=== PATIENT | male | born 1980 | race Caucasian/White ===

== ENCOUNTER 2024-09-22 16:02 | Emergency (ER) | payer OTHER, SELFPAY ==
[2024-09-22 16:04] VITALS: BP 123/1; PULSE 74; RESP 16; TEMP 36.4; O2SAT 99; BMI 26.4
--- NOTE | 2024-09-22 16:18 | EDS_ITS ---
HPI History of Present Illness Chief Complaint: Laceration Informant: patient and spouse/S.O. Narrative Narrative: 44-year-old male [id number] injured his left hand just prior to arrival. He was trying to lift a heavy machine out of the back of a truck, and in doing so a lever came down and pinched his hand like scissors, he sustained some lacerations and some bleeding and is having pain and trouble moving the ring finger. No other injuries. Tetanus Immunization: 5-10 years [facility] Medical History (Updated 09/22/24 @ 17:[address] Nathanael Woodall MD) Hiatal hernia Anxiety Depression Home Medications ?Medication ?Instructions ?Recorded ?Last Taken ?Type cefadroxil 500 mg capsule 500 mg PO BID #10 caps 09/22/24 Unknown Rx Allergy/AdvReac Type Severity Reaction Status Date / Time No Known Allergies Allergy Verified 09/22/24 16:33 ROS ROS ED Constitutional Constitutional ED: Denies chills or fever(s) Musculoskeletal Musculoskeletal: Reports extremity pain; Denies neck pain Integumentary Reports Abrasions and wounds; Denies rash Neurologic Neurologic: Denies paresthesias or weakness EXAM Physical Exam Const Vital Signs: 09/22/24 16:04 Temperature 97.5 F L Temperature Source Temporal Pulse Rate 74 Respiratory Rate 16 Blood Pressure 123/1 H Blood Pressure Mean 41 Pulse Ox 99 Oxygen Delivery Method Room Air Positive well nourished and well developed General Appearance ED: well developed and NAD Neck full ROM and supple Back/Spine normal ROM and normal to inspection Extremity Extremity Narrative: There are 2 different abrasions, one about the dorsum of the distal left ring finger, the other dorsal middle phalanx of the little finger, neither of which is full-thickness requiring repair. There is swelling and tenderness about the proximal phalanx along with a mild deformity. The patient cannot extend, the PIPJ and the DIPJ are in gentle flexion. He has significant pain with attempting to extend. The FDP is intact, he has difficulty flexing the FDS. I am not able to verify that it is intact. Extensor, FDS, FDP of all other fingers are intact. There is a laceration 1.5 cm that is at the dorsum of the ring finger proximal phalanx. It is clean-appearing. No other repairable lacerations. Neuro oriented x3, no focal motor deficits and no sensory deficits noted Sensorium / Orientation: alert Psych mental status grossly normal and thought process normal Skin Skin Narrative: L hand, see above Rashes: no rashes MDM MDM MDM Narrative Medical decision making narrative: I am suspicious for an extensor tendon disruption here and possibly a fracture of the ring finger. Three-view x-ray series of the left hand was obtained, on my interpretation there is an angulated nondisplaced fracture of the proximal phalanx of the fourth digit. He was repaired and splinted see the procedure note. I also straightened/manipulated the angulation, resolving the deformity. His tetanus was updated, he was placed on prophylactic antibiotics for 5 days first dose given here. He will follow-up with plastics/hand, with whom I spoke. Management Discussion w/another healthcare provider: [employer] ([employer]) Procedures Lacerations Dorsal left fourth finger proximal phalanx: Length: 1.5 cm Depth: Sub Q Shape: Linear Prep: Sterile Conditions and Chlorhexadine Laceration repair: Digital block (Using dorsal approach, isopropanol prep, just proximal to the left fourth MCPJ, 6 cc plain 1% lidocaine, good anesthesia tolerated well no complications), Irrigated and - (Not deep enough to explore or see tendon) Irrigated (ml): 100 Number of Sutures/[place]: 3 Suture Information: Ethilon, Simple and 5-0 Upper Extremity Splints Upper Extremity Splint: Alumifoam (Volar finger) Splint Fabrication: Fabricated Location: Left (Ring finger. Neurovascular intact distally afterwards.) Other Procedures Procedure(s): Close reduction angulated fracture left fourth proximal phalanx: Gently distracted and manually manipulated, to a mild degree, making deformity straighter and then splinted see above. Neurovascular intact distally after manipulation. Discharge Plan Triage Chief Complaint: Laceration ED Provider: Nathanael Woodall Dx/Rx/DC Orders Clinical Impression: Nondisplaced fracture of proximal phalanx of left ring finger, initial encounter for open fracture, Laceration of left ring finger, Immunization, tetanus-diphtheria Instructions: ED Fracture, Finger, Open Prescriptions: New cefadroxil 500 mg capsule 500 mg PO BID Qty: 10 0RF Primary Care Provider: Kylee Olvera Referrals: Spenser Charlton MD [Med Staff - Active Staff] - 09/25/24 (call for time) Print Language: Italian Disposition Disposition: Home, Self Care Discharge Date/Time: 09/22/24 17:44
--- NOTE | 2024-09-22 16:25 | RAD_ITS ---
INDICATION: injury EXAMINATION/TECHNIQUE: X-RAY - LEFT XR Hand Min 3 Views 3 VIEWS COMPARISON: No relevant prior comparison study available FINDINGS: SOFT TISSUES: No soft tissue swelling or gas. No radiopaque foreign body. BONES/JOINTS: There is a fracture within the proximal diaphysis of the fourth proximal phalanx. There is widening of the scapholunate interval. Preservation of the joint space.. No sclerotic or destructive changes observed. RAD/Hand Min 3 Views IMPRESSION: Fourth proximal phalanx fracture. Widening of the scapholunate interval may be secondary to underlying ligamentous injury. Electronically Signed: Elo Warner MD at 16:38 EST ,
[2024-09-22] MEDS: Diphth,Pertuss(Acell),Tet Vac 0.5 ML Vial IM (16:30)
[2024-09-22] MEDS: Lidocaine 1% (20 ml mdv) 20 ML Vial INFILT (16:30)
[2024-09-22 17:36] VITALS: BP 120/70; PULSE 67; RESP 16; TEMP 37.1; O2SAT 99
[2024-09-22] MEDS: Cephalexin 250 MG Capsule 500 MG PO (17:42)
== END 2024-09-22 17:44 | disposition home or self-care (01) ==
PROVIDERS: Emergency Provider Emergency Medicine; PCP Physician Assistant; Visit Provider Emergency Medicine
DX: S62.645B Nondisplaced fracture of proximal phalanx of left ring finger, initial encounter for open fracture (principal); Z23 Encounter for immunization; X58.XXXA Exposure to other specified factors, initial encounter
CPT/HCPCS: 12001; 73130; 90471; 90715; 99283

== ENCOUNTER 2024-09-26 11:04 | Day surgery (SDC) | payer SELFPAY ==
[2024-09-26] VITALS (12 sets, daily range): BP systolic 103–132; BP diastolic 68–96; PULSE 62; RESP 16; TEMP 36.4; O2SAT 96–100; BMI 27.6
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
[2024-09-26] MEDS: Cefazolin 2 GM in Syringe IV (13:52)
--- NOTE | 2024-09-26 14:00 | RAD_ITS ---
INDICATION: FX EXAMINATION/TECHNIQUE: X-RAY - LEFT HAND XR Fingers Min 2 Views 8 fluoroscopic images. Total fluoroscopic time 3 minutes 16 seconds. Dose area product 15.6861 cGycm2. COMPARISON: Prior study dated: 09/25/2024 FINDINGS: Redemonstration of the fracture at the proximal aspect of the third digit proximal phalanx. Slight offset initially. There is reduction with placement of screw fixation across the fracture. Near-anatomic alignment. RAD/Finger(s) Min 2 Views IMPRESSION: Internal fixation of the third digit proximal phalanx fracture with near-anatomic alignment. Please refer to operative report for further information. Electronically Signed: Raudel Pérez MD at 22:56 EST ,
[2024-09-26] MEDS: Lidocaine 1% (20 ml mdv) 20 ML Vial (14:10)
[2024-09-26] MEDS: Bupivacaine 0.25% 30 ML Vial (14:10)
--- NOTE | 2024-09-26 15:19 | OP.PCM_ITS ---
Operative Report (Standard) Operative Information Date of Procedure: 09/26/24 Pre-Operative Diagnosis: 1) Left ring finger proximal phalanx (P1) fracture 2) Crush injury to dorsal of left ring finger with concern for extensor tendon injury Post-Operative Diagnosis: Same Surgery/Procedure Performed: 1) Open reduction, internal fixation of the left ring finger proximal phalanx fracture (CPT: 26916) 2) Exploration of upper extremity penetrating trauma, left dorsal ring finger (CPT: 96401) 3) Simple closure of dorsal left ring finger wound, 2.5 cm (CPT: 30870) fruit canner: Yes Bicycle Messenger: Peggy Minaya Tasks completed by assistant professor of physics: Retracting Type of Anesthesia: Local (18 cc of 0.25% marcaine and 1% lidocaine (a 50/50 mixture) ) RN Documented Start/Stop Times: Operation Date: 09/26/24 13:45 Case Time Into Pre-Op 09/26/24 11:22 Into Room 09/26/24 13:52 Procedure Start 09/26/24 14:12 Procedure End 09/26/24 14:57 Out of Room 09/26/24 14:59 Into Phase II Recovery 09/26/24 15:00 Procedure Start Time: 14:12 Procedure Stop Time: 14:57 Select all DRAINS/GRAFTS/IMPLANTS that apply: Implanted device (intramedullary screw, left ring finger P1) Implanted device details: Exsomed InFrame Implant, 2 mm x 36 mm , REF [id number], Lot [id number], Exp 13 April 2027 Estimated Blood Loss: Minimal Specimen collected: No Description of surgery: Indications: Yuan Davison is a delightful 44-year-old male who sustained a crush injury to his left ring finger resulting in an open fracture on 22 Sep 2024. He was washed out and splinted by the emergency department and they had him follow-up in my clinic. I talked to him about the risks, benefits and alternatives to surgery. There was concern from the ED physician for an extensor tendon injury, as her reported I am suspicious for an extensor tendon disruption here following exploration/wash out of the wound. Given that he had some extensor lag in clinic, I talked to Mr. Davison about exploration of the dorsal ring finger laceration to check for the laceration, and he agreed. Procedure details: Patient was correctly identified preoperative holding and marked, and taken back to the operating room where he was administered a local block. He was prepped and draped in sterile fashion and all proper timeouts were performed per protocol. I began the procedure by taking an x-ray of the fracture. I was able to reduce the fracture with gentle manipulation. I then took a guidewire for an Exsomed intramedullary screw and drilled from the proximal radial side of P1 to the distal ulnar side of P1 across the fracture line stabilizing the fracture. Mini C arm x-rays confirmed proper placement and reduction (on PA and lateral). I then checked the digital cascade and there was no angulation or rotation of the ring finger or scissoring. Therefore we proceeded and a cut down with 15 blade scalpel was made down to the base of P1 (this was the open part of the procedure). An InFrame implant (Exsomed) 2 mm x 36 mm screw was then placed through the guidewire into the proximal phalanx across the fracture line bridging the gap and filling the medullary cavity well. I was happy with the x- ray on PA and lateral. I stressed the fracture line with radial and ulnar stre ss and the construct appeared to be rigid and stable. I considered placing a second screw across the butterfly fragment at the base of P1, but given the degree of comminution and the etiology of the wound (crush injury), I decided against this derotational screw, as it appeared to be in acceptable position with enough stability. The cascade was checked one more time and was acceptable. With the guidewire removed, I then irrigated the small wound on the dorsum of the hand and closed with an interrupted horizontal mattress 4-0 nylon suture. Attention was then turned to the transverse laceration over the proximal phalanx of the left dorsal ring finger where there was concern for tendon injury. I open the suture line up with a 15 blade scalpel and made further exploratory incisions proximally and distally (creating a Z for better exposure) with a 15 blade scalpel. Careful dissection was carried out, ligating dorsal veins with bipolar electrocautery for hemostasis. I was able to identify the extensor digitorum communis tendon (EDC) and there was no obvious laceration to the tendon (some slight fraying from the crush injury which may have been mistaken for a full tendon injury). The wound was therefore irrigated and closed with horizontal mattress 4-0 nylon suture. The total simple closure was 2.5 cm. The patient tolerated the procedure well and was placed in an ulnar gutter splint with plaster. Postoperative plan: Continue antibiotics for 1 week. Follow-up in 1 week for x-rays. Continue immobilization with an ulnar gutter splint. We will likely immobilize for 3-4 weeks given crush injury/degree of comminution on the ulnar side. Surgical Findings: Stable fracture following placement of intramedullary screw with persistent ulnar-sided comminution near the base of P1. Complications Complications: No Admit VTE Documentation VTE Mechan Device Prophylaxis: SCD's
== END 2024-09-26 16:35 | disposition home or self-care (01) ==
LOC: SDC 11:06 → AC 11:14
PROVIDERS: PCP Physician Assistant; Referring Provider Surgery Plastic and Reconstructive Surgery; Visit Provider Surgery Plastic and Reconstructive Surgery
PROC: (CPT 26735; principal; 2024-09-26 13:30)
DX: S62.645B Nondisplaced fracture of proximal phalanx of left ring finger, initial encounter for open fracture (principal); S67.195A Crushing injury of left ring finger, initial encounter; X58.XXXA Exposure to other specified factors, initial encounter
CPT/HCPCS: 26735; 20103; 01830; 73140; 76000; C1713; A4216

== ENCOUNTER 2025-01-01 14:30 | Outpatient (RCR) | payer SELFPAY ==
--- NOTE | 2024-10-16 13:42 | HP.OTEVAL ---
Patient's Visit Information Visit Information Visit Information: CATINA EVANGELISTA is a 44 year old M, referred to Occupational Therapy by Dr. Spenser Charlton MD, with a diagnosis of left RF phalanx fx.. Date of Evaluation: 10/16/24 Occupational Therapist: Debbie Clark, OTR/L, CHT Subjective Subjective: This 44 year old male was seen for OT eval with dx of left RF phalanx. pt states on 2023 pt suffered a left hand crush injury. Pt states they went to [facility] and ended up with a Open reduction, internal fixation of the left ring finger proximal phalanx fracture. DOS was on 09/26/24. Pt arrives 2 weeks and 6 days s/p in need of protective custom orthosis. pt is right handed very active working with hand with cast on to split fire wood and perform other home mtg. tasks. wants hand protected as she knows her will do to much with his hand until he is cleared by Dr. Charlton ROM MP: left RF 0/65 PIP: left RF -20/35 DIP: left RF -10/20 ROM Comments: pt demo with limited AROM of left RF as pt just had his cast off this AM. Strength Strength Comments: will test later date Quick DASH-Disab of Arm,Shoulder& Hand Quick DASH Score: 51.6650 Goals Goal:ROM equal to unaffected hand: Yes Goal:Communications Professional/Pinch strength at least 75% of unaffected hand: Yes Comment: will initiate at later date about 6-8 weeks s/p Goal:No pain with affected hand use: Yes Goal:Full use of affected hand in daily activities including work: Yes Other Goal: orthosis use: pt will demo understanding of orthosis use with all activity and sleeping in orthosis- off for ex. for light ROM. Rehabilitation General Assessment: pt arrives 2 weeks and 6 days s/p from Open reduction, internal fixation of the left ring finger proximal phalanx fracture. pt demo need for skilled OT services 1-2x week for 8-12 weeks. Today pt in need of custom orthosis to provide support and protection to newly healing structures and ed. on initiation of active ROM exercise to return pt to his PLOF. Today therapist shekhar. custom orthosis to provide support and protection to left RF- therapist ed. pt on use at all times- off about every 2 hours to perform ROM ex. pt demo understanding. Rehabilitation Potential: Excellent Anticipated Interventions Anticipated Interventions: A/AAROM/PROM, Strengthening, Modalities, Orthoses, Joint Protection/Energy Conservation, Ergonomic Education, Education re assistive Equipment, Education re Diagnosis, Caregiver Training and Home Program Visit Plan Frequency: 1-2x /Week Duration: 2 Months General Plan: use of orthosis when out of home- and sleeping- or use of left hand with daily tasks- able to remove every hour to perform ROM ex. work on ROM next two weeks and once cleared by Dr. Charlton will initiate strengthening at tolerated. pt ed. no push/pull or wt.bearing to left UE. TEXT: Thank you for the opportunity to evaluate your patient. For Medicare and Medicare HMO plans, please review the plan of care and approve it. It will need to be FAXED BACK to us at [phone] for Medicare purposes. Please let me know if there are questions or concerns regarding this plan of care. Physician Signature: Date:
--- NOTE | 2025-06-12 11:29 | HP.OT.NRP ---
Patient Information Patient Information: CATINA EVANGELISTA was seen in my office for initial evaluation on 10/16/24. The following Plan of Care was established for this patient: POC Established Initial Frequency: 1-2x /Week Initial Duration: 2 Months Plan: d/c Anticipated Interventions Anticipated Interventions: A/AAROM/PROM, Strengthening, Modalities, Orthoses, Joint Protection/Energy Conservation, Ergonomic Education, Education re assistive Equipment, Education re Diagnosis, Caregiver Training and Home Program Last Seen Last Seen: This patient was last seen in our office 01/01/25. Pertinent comments regarding their Occupational therapy will appear below: pt progressed well with his ROM and when last seen 5 months ago was using his hand for ADLs and IADls. pt d/c at this time due to time lapse in services. At this point I will be discontinuing this patient from occupational therapy. I would be happy to see this patient again in the future if found appropriate by the physician. Thank you! Debbie Clark, OTR/L, CHT
== END 2025-01-01 19:00 | disposition home or self-care (01) ==
LOC: OT 14:30
PROVIDERS: PCP Physician Assistant; Referring Provider Surgery Plastic and Reconstructive Surgery; Visit Provider Surgery Plastic and Reconstructive Surgery
DX: S62.605D Fracture of unspecified phalanx of left ring finger, subsequent encounter for fracture with routine healing (principal)
CPT/HCPCS: 97110; 97140; 97166; 97530; 97760